=== PATIENT | female | born 1995 | race Caucasian/White ===

== ENCOUNTER → 2016-09-01 | Outpatient (CLI) | payer OTHER ==
[~2016-09-01] MED LIST: IBUP200T43 PO
--- NOTE | 2016-09-01 15:52 | RAD ---
Pelvic ultrasound, 09/01/2016: History: Irregular and heavy menses Transabdominal and transvaginal scans were obtained. The uterus measures 6.6 x 4.6 x 3.0 cm. Two small nabothian cysts are present in the cervical region. A normal central uterine echo is present measuring 4 mm in AP dimension. The right ovary measures 4.3 x 2.5 x 1.8 cm. The left ovary measures 3.2 x 2.3 x 2.3 cm. Multiple small follicular cysts are present in both ovaries. The cytometry technologist describes greater than 12 cysts in each ovary. No adnexal mass is seen. No free fluid is evident in the pelvis. IMPRESSION: 1. The ovaries are mildly prominent and contain multiple small follicular cysts, raising the possibility of polycystic ovarian syndrome. Clinical correlation is suggested. 2. The pelvic ultrasound is otherwise unremarkable.
== END | disposition home or self-care (01) ==
LOC: US 14:42
PROVIDERS: ATTEND Obstetrics & Gynecology
DX: N92.0 Excessive and frequent menstruation with regular cycle (principal); N83.201 Unspecified ovarian cyst, right side; N93.9 Abnormal uterine and vaginal bleeding, unspecified
CPT/HCPCS: 76830; 76856

== ENCOUNTER 2018-09-24 16:07 | Emergency (ER) | payer BC, OTHER ==
[~2018-09-24] VITALS: Ht 160 cm; Wt 68.0 kg
[~2018-09-24 16:07] MED LIST changes: -IBUP200T43 PO; +IBUP200T44 PO
[2018-09-24 16:45] LABS: BACTERIA,URINE 0 /HPF (0-FEW); BILIRUBIN,URINE NEG (NEG); CLARITY,URINE CLEAR; COLOR,URINE STRAW; GLUCOSE,URINE NEG (NEG); NITRITE,URINE NEG (NEG); RBC,URINE 0 /HPF (0-2); SQUAMOUS EPITHELIAL CELL,UR OCC /LPF; UROBILINOGEN,URINE 0.2 mg/dL (0.2 mg/dL); WBC,URINE OCC /HPF (0-4)
[2018-09-24 16:58] LABS: BASO % 1 % (0-3); EOS # 0.1 x10^3/uL (0.0-0.7); EOS % 1 % (0-3); HEMATOCRIT 40.8 % (36.0-47.0); HEMOGLOBIN 13.9 g/dL (12.0-15.5); LYMPH # 2.2 x10^3/uL (1.0-4.8); LYMPH % 29 % (24-48); MEAN CORPUSCULAR HEMOGLOBIN 30 pg (25-35); MEAN CORPUSCULAR HGB CONC 34 g/dL (31-37); MEAN CORPUSCULAR VOLUME 87 fL (79-100); MONO # 0.6 x10^3/uL (0.0-1.1); MONO % 8 % (0-9); NEUT # 4.8 x10^3uL (1.8-7.7); NEUT % 63 % (31-73); PLATELET COUNT 272 x10^3/uL (140-400); RED CELL DISTRIBUTION WIDTH 12.4 % (11.5-14.5); WHITE BLOOD COUNT 7.6 x10^3/uL (4.0-11.0)
--- NOTE | 2018-09-24 17:07 | PHYS DOC ---
Past History Past Medical History: Other Additional Past Medical Histor: polycystic ovarian syndrome Past Surgical History: No Surgical History Smoking: Non-smoker Alcohol Use: None Drug Use: None Adult General Chief Complaint Chief Complaint: ABDOMINAL PAIN HPI HPI Patient is a 22-year-old female with past medical history of polycystic ovarian syndrome who presents to the ED for abdominal pain and amenorrhea. Patient takes Provera for 10 days and beginning of each month after which she typically has a menstrual cycle. She had been fairly regular since beginning this therapy and is concerned because she has not had menses this month. She has also had abdominal pain for the past two weeks most localized to the right lower quadrant with some fullness in the right upper quadrant. She has also felt nauseous for the past two weeks but has not vomited. Denies vaginal discharge, bleeding, diarrhea, constipation or sick contacts. Review of Systems Review of Systems Constitutional: Denies fever or chills Respiratory: Denies cough or shortness of breath Cardiovascular: Denies chest pain or palpitations GI: Reports abdominal pain most localized to the right lower quadrant as well as right upper quadrant fullness, nausea. Denies vomiting, constipation, or diarrhea. /ASSISTANT HVAC MECHANIC: Denies vaginal bleeding, discharge, dysuria or hematuria Musculoskeletal: Denies back pain or joint pain Integument: Denies rash or skin lesions Neurologic: Denies headache, focal weakness or sensory changes Complete systems were reviewed and found to be within normal limits, except as documented in this note. Allergies Allergies Allergies Coded Allergies Type Severity Reaction Last Updated Verified Penicillins Allergy Intermediate RASH 04/11/15 Yes Physical Exam Physical Exam Constitutional: Well developed, well nourished, no acute distress, non-toxic appearance HENT: Normocephalic, atraumatic, oropharynx moist Eyes: EOMI, conjunctiva normal, no discharge Cardiovascular: Heart rate normal, regular rhythm Lungs & Thorax: Bilateral breath sounds clear to auscultation, no wheezing Abdomen: Soft and nondistended. Tenderness to palpation in the right lower quadrant with some mild discomfort in the right upper quadrant. Negative Dang sign. No hepatomegaly. No rebound, rigidity, or guarding. Pelvic exam: Machine Setup Operator RN, External genitalia normal, no CMT, let adnexal tenderness noted, no discharge, no bleeding Skin: Warm, dry, no erythema, no rash Back: No tenderness, no CVA tenderness Neurologic: Alert and oriented, normal motor function, normal sensory function, no focal deficits noted Psychologic: Affect normal, judgement normal, mood normal Current Patient Data Vital Signs Vital Signs Date Time Temp Pulse Resp B/P (MAP) Pulse Ox O2 Delivery O2 Flow Rate FiO2 09/24/18 16:15 98.2 80 18 99 Room Air Lab Results Laboratory Tests Test 09/24/18 16:14 09/24/18 16:26 Urine Collection Type Unknown Urine Color Straw Urine Clarity Clear Urine pH 7.0 Urine Specific [place] 1.020 Urine Protein Neg (NEG-TRACE) Urine Glucose (UA) Neg mg/dL (NEG) Urine Ketones (Stick) Neg mg/dL (NEG) Urine Blood Neg (NEG) Urine Nitrite Neg (NEG) Urine Bilirubin Neg (NEG) Urine Urobilinogen Dipstick 0.2 mg/dL (0.2 mg/dL) Urine Leukocyte Esterase Neg (NEG) Urine RBC 0 /HPF (0-2) Urine WBC Occ /HPF (0-4) Urine Squamous Epithelial Cells Occ /LPF Urine Bacteria 0 /HPF (0-FEW) POC Urine HCG, Qualitative hcg negative (Negative) EKG EKG [] Radiology/Procedures Radiology/Procedures PROCEDURE: US PELVIS W/TV Pelvic ultrasound dated 09/24/2018. No comparison available. Clinical data indication: Right lower quadrant pain for 2 weeks. FINDINGS: Transvaginal and transabdominal imaging was performed. Uterus measures 7.7 x 5.3 x 3.1 cm. No focal uterine mass. Endometrium is normal in thickness for age measuring 9 mm. There are nabothian cysts at the endocervix. Right ovary measures 4.6 x 3.0 x 4.5 cm. Left ovary measures 3.4 x 1.9 x 3.3 cm. There is a heterogeneous nodular focus at the right ovary that measures up to 3.5 cm in size, without significant internal color flow. No free fluid. IMPRESSION: 1. Heterogeneous nodular focus at the right ovary measuring up to 3.5 cms in size, indeterminate. Scattered represent a hemorrhagic cyst or less likely, a solid mass. Suggest follow-up imaging in 9-12 weeks to ensure resolution. Electronically signed by: Edith Crockett MD (09/24/2018 5:58 PM) [facility] DICTATED AND SIGNED BY: EDITH CROCKETT MD DATE: 09/24/18 6582 Course & Med Decision Making Course & Med Decision Making Pertinent Labs and Imaging studies reviewed. (See chart for details) Patient presents with lower pelvic pain. Pelvic exam performed. Chlamydia/Gonorrhea cultures pending. Patient deferred empiric treatment. Wet mount negative. Labs obtained and posted to chart. Mild renal insufficiency noted. IVF hydration given. US with findings of right adnexal complex cyst. Patient stable for discharge with outpatient follow-up with PCP/ASSISTANT HVAC MECHANIC. Discussed findings and plan with patient and family, who acknowledge understanding and agreement. Dragon Disclaimer Dragon Disclaimer This electronic medical record was generated, in whole or in part, using a voice recognition dictation system. Departure Departure: Impression: Primary Impression: Ovarian cyst Additional Impressions: Pelvic pain Renal insufficiency Disposition: HOME, SELF-CARE Condition: STABLE Referrals: JAMEL LOYA (PCP) Patient Instructions: Chronic Renal Insufficiency, Ovarian Cyst, [id number] Additional Instructions: Follow up closely with your ASSISTANT HVAC MECHANIC for further evaluation and treatment and repeat ultrasound for re-evaluation of your ovarian cyst. Scripts Tramadol Hcl (TRAMADOL HCL) 50 Mg Tablet 50 MG PO PRN Q6HRS PRN for PAIN, #14 TAB Take each tablet with one (1) regular strength Tylenol 325mg Prov: EDITH MORALES DO 09/24/18 Problem Qualifiers Primary Impression: Ovarian cyst Laterality: right Qualified Codes: N83.201 - Unspecified ovarian cyst, right side EDITH MORALES DO September 24, 2018 17:07
[2018-09-24 17:14] LABS: ALBUMIN/GLOBULIN RATIO 0.9 (1.0-1.7); CALCIUM 9.5 mg/dL (8.5-10.1); CREATININE 1.1 mg/dL (0.6-1.0); GFR 62.7; POTASSIUM 4.1 mmol/L (3.5-5.1); TOTAL BILIRUBIN 0.3 mg/dL (0.2-1.0); TOTAL PROTEIN 8.3 g/dL (6.4-8.2)
[2018-09-24] MEDS ORDERED: IV NORMAL SALINE 1,000ML 1,000 ML IV ONE (18:00)
[2018-09-24] MEDS ORDERED: KETOROLAC 15 MG/ML VIAL. IV ONE (18:00)
--- NOTE | 2018-09-24 18:01 | RAD ---
Pelvic ultrasound dated 09/24/2018. No comparison available. Clinical data indication: Right lower quadrant pain for 2 weeks. FINDINGS: Transvaginal and transabdominal imaging was performed. Uterus measures 7.7 x 5.3 x 3.1 cm. No focal uterine mass. Endometrium is normal in thickness for age measuring 9 mm. There are nabothian cysts at the endocervix. Right ovary measures 4.6 x 3.0 x 4.5 cm. Left ovary measures 3.4 x 1.9 x 3.3 cm. There is a heterogeneous nodular focus at the right ovary that measures up to 3.5 cm in size, without significant internal color flow. No free fluid. IMPRESSION: 1. Heterogeneous nodular focus at the right ovary measuring up to 3.5 cms in size, indeterminate. Scattered represent a hemorrhagic cyst or less likely, a solid mass. Suggest follow-up imaging in 9-12 weeks to ensure resolution. Electronically signed by: Gerhard Crockett MD (09/24/2018 5:58 PM) [employer]
[2018-09-24 18:10] VITALS: BP 123/71
[2018-09-24] MEDS ORDERED: TRAM50TA PO (18:25)
[2018-09-26 21:10] LABS: CHLAMYDIA PROBE Negative (Negative)
== END 2018-09-24 18:42 | disposition home or self-care (01) ==
LOC: ER 16:07
DX: N83.201 Unspecified ovarian cyst, right side (principal); N28.9 Disorder of kidney and ureter, unspecified; Z88.0 Allergy status to penicillin
CPT/HCPCS: 36415; 76830; 76856; 80053; 81001; 81025; 83690; 83735; 85025; 87491; 87591; 96374; 99285; J1885; Q0111; J7030

== ENCOUNTER → 2018-11-28 | Outpatient (CLI) | payer BC, OTHER ==
[~2018-11-28] MED LIST changes: +TRAM50TA PO
[2018-11-28 17:33] LABS: BASO % 0 % (0-3); EOS % 0 % (0-3); HEMATOCRIT 36.6 % (36.0-47.0); HEMOGLOBIN 12.4 g/dL (12.0-15.5); LYMPH # 2.2 x10^3/uL (1.0-4.8); LYMPH % 20 % (24-48); MEAN CORPUSCULAR HEMOGLOBIN 30 pg (25-35); MEAN CORPUSCULAR HGB CONC 34 g/dL (31-37); MEAN CORPUSCULAR VOLUME 88 fL (79-100); MONO # 0.8 x10^3/uL (0.0-1.1); MONO % 7 % (0-9); NEUT # 7.8 x10^3uL (1.8-7.7); NEUT % 72 % (31-73); PLATELET COUNT 227 x10^3/uL (140-400); RED BLOOD COUNT 4.16 x10^6/uL (3.50-5.40); RED CELL DISTRIBUTION WIDTH 12.4 % (11.5-14.5); WHITE BLOOD COUNT 10.8 x10^3/uL (4.0-11.0)
[2018-11-29 18:11] LABS: RUBELLA IGG ANTIBODY 2.5 index (Immune >0.99)
== END | disposition home or self-care (01) ==
LOC: LAB 16:12
PROVIDERS: ATTEND Obstetrics & Gynecology
DX: Z32.01 Encounter for pregnancy test, result positive (principal)
CPT/HCPCS: 36415; 81220; 85025; 86592; 86703; 86762; 86850; 86900; 86901; 87340

== ENCOUNTER → 2018-12-13 | Outpatient (CLI) | payer BC, OTHER ==
--- NOTE | 2018-12-13 10:52 | RAD ---
Indication: Early . TECHNIQUE: Ultrasound OB less than 14 weeks. COMPARISON: None FINDINGS: Single intrauterine gestation is seen with yolk sac measuring 0.53 cm. Bright-rump length measures 3.7 cm corresponding to gestation age of 10 weeks 4 days. Uterus measures 12.8 x 7.7 x 8.7 cm. Heart rate 162 bpm. Left ovary measures 2.0 x 3.0 x 2.8 cm and shows blood flow. Right ovary measures 2.0 x 2.8 x 3.7 cm and shows blood flow. Cervix is closed. No free pelvic fluid. IMPRESSION: Single live viable intrauterine corresponding to estimated gestation age of 11 weeks 1 day and due date of 07/03/2019. Electronically signed by: Irwin Porter DO (12/13/2018 10:49 AM) [facility]
== END | disposition home or self-care (01) ==
LOC: US 08:54
PROVIDERS: ATTEND Obstetrics & Gynecology
DX: Z34.91 Encounter for supervision of normal pregnancy, unspecified, first trimester (principal); Z3A.11 11 weeks gestation of pregnancy
CPT/HCPCS: 76801; 76817

== ENCOUNTER → 2018-12-27 | Outpatient (CLI) | payer BC, OTHER ==
[2018-12-27 09:55] LABS: HEMATOCRIT 39.1 % (36.0-47.0); HEMOGLOBIN 13.4 g/dL (12.0-15.5); MEAN CORPUSCULAR HEMOGLOBIN 30 pg (25-35); MEAN CORPUSCULAR VOLUME 88 fL (79-100); RED BLOOD COUNT 4.46 x10^6/uL (3.50-5.40); WHITE BLOOD COUNT 9.2 x10^3/uL (4.0-11.0)
[2018-12-27 09:56] LABS: BASO % 0 % (0-3); EOS # 0.1 x10^3/uL (0.0-0.7); EOS % 1 % (0-3); LYMPH # 2.5 x10^3/uL (1.0-4.8); LYMPH % 27 % (24-48); MEAN CORPUSCULAR HGB CONC 34 g/dL (31-37); MONO # 0.7 x10^3/uL (0.0-1.1); MONO % 7 % (0-9); NEUT % 65 % (31-73); PLATELET COUNT 238 x10^3/uL (140-400); RED CELL DISTRIBUTION WIDTH 12.8 % (11.5-14.5)
[2018-12-27 10:02] LABS: CALCIUM 8.7 mg/dL (8.5-10.1); CREATININE 0.8 mg/dL (0.6-1.0); GFR 89.7; POTASSIUM 3.9 mmol/L (3.5-5.1)
[2018-12-27 14:24] LABS: THYROID STIM HORMONE (TSH) 4.935 uIU/mL (0.358-3.740)
[2018-12-27 18:06] LABS: THYROXINE 9.6 ug/dL (4.5-12.0)
[2018-12-28 17:07] LABS: RUBELLA IGG ANTIBODY 1.87 index (Immune >0.99)
== END | disposition home or self-care (01) ==
LOC: LAB 08:23
PROVIDERS: ATTEND Obstetrics & Gynecology
DX: Z34.01 Encounter for supervision of normal first pregnancy, first trimester (principal); Z3A.13 13 weeks gestation of pregnancy
CPT/HCPCS: 36415; 80048; 80061; 84436; 84443; 85025; 86592; 86762; 86850; 86900; 86901; 87340

== ENCOUNTER → 2018-12-27 | Outpatient (CLI) | payer BC, OTHER ==
[2018-12-27 09:54] LABS: BASO % 0 % (0-3); EOS # 0.1 x10^3/uL (0.0-0.7); EOS % 1 % (0-3); HEMATOCRIT 39.1 % (36.0-47.0); HEMOGLOBIN 13.4 g/dL (12.0-15.5); LYMPH # 2.5 x10^3/uL (1.0-4.8); LYMPH % 27 % (24-48); MEAN CORPUSCULAR HEMOGLOBIN 30 pg (25-35); MEAN CORPUSCULAR HGB CONC 34 g/dL (31-37); MEAN CORPUSCULAR VOLUME 88 fL (79-100); MONO # 0.7 x10^3/uL (0.0-1.1); MONO % 7 % (0-9); NEUT % 65 % (31-73); PLATELET COUNT 238 x10^3/uL (140-400); RED BLOOD COUNT 4.46 x10^6/uL (3.50-5.40); RED CELL DISTRIBUTION WIDTH 12.8 % (11.5-14.5); WHITE BLOOD COUNT 9.2 x10^3/uL (4.0-11.0)
[2018-12-27 10:10] LABS: ALBUMIN 2.9 g/dL (3.4-5.0); ALBUMIN/GLOBULIN RATIO 0.7 (1.0-1.7); CALCIUM 8.8 mg/dL (8.5-10.1); CREATININE 0.8 mg/dL (0.6-1.0); GFR 89.7; POTASSIUM 3.9 mmol/L (3.5-5.1); TOTAL BILIRUBIN 0.1 mg/dL (0.2-1.0)
[2018-12-27 14:26] LABS: THYROID STIM HORMONE (TSH) 4.935 uIU/mL (0.358-3.740)
== END | disposition home or self-care (01) ==
LOC: LAB 08:17
PROVIDERS: ATTEND Physician Assistant
DX: Z00.00 Encounter for general adult medical examination without abnormal findings (principal)
CPT/HCPCS: 36415; 80053; 80061; 84439; 84443; 85025

== ENCOUNTER → 2019-02-04 | Outpatient (CLI) | payer BC, OTHER ==
--- NOTE | 2019-02-04 13:41 | RAD ---
EXAM: Obstetrics sonogram. HISTORY: Uterine size and dates discrepancy. TECHNIQUE: Sonographic imaging of the gravid uterus was performed. COMPARISON: 12/13/2018. FINDINGS: There is a single intrauterine fetus in in breech presentation with a heart rate of 132 bpm. The cervix is closed and measures 5.2 cm in length. There is an anterior placenta without evidence of placenta previa. The amniotic fluid index is normal at 12.3 cm. There is a three-vessel umbilical cord with normal insertion. The stomach, kidneys, bladder, spine, brain, extremities, and heart are unremarkable. The facial profile is not well seen. The biparietal diameter is 4.0 cm, corresponding with 18 weeks and 1 day. The head circumference is 15.5 cm, corresponding with 18 weeks and 3 days. The abdominal circumference is 13.0 cm, corresponding with 18 weeks and 4 days. The femoral length is 2.5 cm, corresponding with 17 weeks and 4 days. The estimated gestational age patient combined ultrasound measurements is 18 weeks and 1 day and the estimated due date is 07/07/2019. The estimated weight is 225 g. IMPRESSION: 1. Single intrauterine fetus with an estimated gestational age patient also measurements of 18 weeks and 1 day and heart rate of 132 bpm. The estimated gestational age based on LMP is 18 weeks and 5 days. 2. Suboptimal evaluation of the facial profile due to presentation. Short-term follow-up can be performed to complete an otherwise unremarkable anatomy survey. Electronically signed by: Payal Sparrow MD (02/04/2019 1:38 PM) [id number]
== END | disposition home or self-care (01) ==
LOC: US 10:10
PROVIDERS: ATTEND Obstetrics & Gynecology
DX: O26.842 Uterine size-date discrepancy, second trimester (principal); Z3A.18 18 weeks gestation of pregnancy
CPT/HCPCS: 76805